=== PATIENT | female | born 1980 | race Caucasian/White ===

== ENCOUNTER 2021-11-25 04:20 | Day surgery (SDC) | payer OTHER ==
[2021-11-24 11:30] VITALS: BMI 33.3
[2021-11-25 10:02] VITALS: TEMP 97.7
[2021-11-25 10:33] VITALS: BP 112/75; PULSE 68
== END 2021-11-25 10:40 | disposition home or self-care (01) ==
LOC: JASU-ENDO 04:20
PROVIDERS: ATTEND Internal Medicine Gastroenterology
PROC: 0DB68ZX Excision of Stomach, Via Natural or Artificial Opening Endoscopic, Diagnostic (ICD-10-PCS; principal; 2021-11-25 09:30)
DX: R12 Heartburn (principal)
CPT/HCPCS: 81025; 88305-TC; 88342-TC